=== PATIENT | male | born 1980 | race Hispanic/Latino ===

== ENCOUNTER 2018-01-01 14:20 | Emergency (ER) | payer OTHER, SELFPAY ==
[2018-01-01] MEDS ORDERED: Tetracaine 0.5% OPHTH SOLN/PF 4 ML BOT ONE (14:42)
== END 2018-01-01 15:06 | disposition home or self-care (01) ==
LOC: MADERS 14:20
DX: S05.01XA Injury of conjunctiva and corneal abrasion without foreign body, right eye, initial encounter (principal); X58.XXXA Exposure to other specified factors, initial encounter
CPT/HCPCS: 99283